=== PATIENT | male | born 1995 | race Hispanic/Latino ===

== ENCOUNTER 2020-07-13 02:53 | Emergency (ER) | payer BC, SELFPAY ==
--- NOTE | ~2020-07-13 | XR_ITS ---
EXAMINATION: XR chest 1V EXAM DATE: 07/13/2020 03:22 INDICATION: Transient alteration of awareness. TECHNIQUE: Portable AP frontal chest x-ray was obtained. There is no prior study for comparison. FINDINGS: The lungs are clear. There are no pleural effusions. The cardiomediastinal silhouette is within normal limits. There is no pneumothorax suspected. The bones and soft tissues are unremarkab le. IMPRESSION: Normal chest x-ray exam. Reviewed, dictated and finalized at location A. IMPRESSION: Normal chest x-ray exam.
--- NOTE | ~2020-07-13 | CT_ITS ---
EXAMINATION: CT brain wo con EXAM DATE: 07/13/2020 03:20 INDICATION: Syncope. Altered mental status. TECHNIQUE: Spiral CT of the head was performed without contrast. Axial, coronal and sagittal images were reviewed. The dose-length product (DLP) for this examination was 605.33 mGy-cm. The exposure w as tailored according to patient size, and iterative reconstruction (ASIR) was used as additional dos e reduction technique. There is no prior study for comparison. FINDINGS: There is no acute intraparenchymal hemorrhage. No evidence of intraparenchymal brain mass lesion. No evidence of acute infarction. There is no mass effect or midline shift. The ventricles are normal in size. There are no extra-axial collections. There are no acute calvarial fractures. T he orbits are unremarkable. Soft tissue is unremarkable. The visualized sinuses and mastoid air mita ls are well aerated. IMPRESSION: 1. Normal head CT examination. Reviewed, dictated and finalized at location A.
[2020-07-13 02:54] VITALS: BP 142/84; PULSE 85; RESP 19; TEMP 37.2; O2SAT 100
--- NOTE | 2020-07-13 02:57 | ECG_ITS ---
Measurements Intervals [place] Rate: 84 P: 73 [place]: 151 QRS: 75 QRSD: 99 T: 50 QT: 360 QTc: 426 Interpretive Statements SINUS RHYTHM WITH SINUS ARRHYTHMIA NORMAL ECG Electronically Signed On 07-16-2020 16:09:09 CDT by Aayush Mclaughlin D.O.
--- NOTE | 2020-07-13 03:16 | PC.NURSE ---
0305-Patient started verbalizing-speech clear. Answers no when asked if he took anything tonight. Responded [facility]? when asked if he knew where he was. Patient is very jumpy to any physical touch
[2020-07-13 03:24] LABS: Basophils Percent Auto 0.3 % (0.2-1.2); Eosinophils Absolute Auto 0.1 K/mm3 (0-0.3); Eosinophils Percent Auto 0.8 % (0-4.4); Hematocrit 41.5 % (42.0-52.0); Hemoglobin 14.9 g/dL (14.0-18.0); Immature Granulocyte Absolute 0.02 K/mm3 (0.00-0.031); Immature Granulocyte Percent A 0.2 % (0-0.5); Lymphocytes Absolute Auto 2.77 K/mm3 (0.9-3.2); Lymphocytes Percent Auto 31.6 % (18.3-44.2); Mean Corpuscular HGB Conc 35.9 g/dl (32-36); Mean Corpuscular Hemoglobin 32.2 pg (26-34); Mean Corpuscular Volume 89.6 fl (80-100); Mean Platelet Volume 9.1 fl (7.4-10.4); Monocytes Absolute Auto 0.7 K/mm3 (0.1-0.6); Monocytes Percent Auto 7.6 % (2.6-8.5); Neutrophils Absolute Auto 5.2 K/mm3 (1.3-6.7); Neutrophils Percent Auto 59.5 % (45.5-73.1); Platelet Count Result 273 k/mm3 (150-375); Red Blood Count 4.63 M/mm3 (4.6-6.20); Red Cell Distribution Width 10.8 % (11.5-14.5); White Blood Count 8.8 K/mm3 (4.5-10.0)
[2020-07-13 03:30] VITALS: BP 147/77; PULSE 79; RESP 19; O2SAT 97
[2020-07-13 03:41] LABS: Anion Gap 14 mmol/L (8-16); Blood Urea Nitrogen 17 mg/dL (9-20); Calcium 9.8 mg/dL (8.4-10.2); Carbon Dioxide 24 mmol/L (22-30); Chloride 104 mmol/L (98-107); Estimated CRCL calculation 83 ml/min; Estimated Glomerular Filt Rate > 60; Ethanol < 10 mg/dL (<10); Glucose 99 mg/dL (75-110); Potassium 4.2 mmol/L (3.4-5.0); Sodium 142 mmol/L (137-145)
--- NOTE | 2020-07-13 03:45 | PC.NURSE ---
Patient has bedside visitor--patient talking to visitor
[2020-07-13 04:00] VITALS: BP 157/85; PULSE 82; RESP 16; O2SAT 99
--- NOTE | 2020-07-13 04:20 | PC.NURSE ---
Patient very awake alert-he was asked to give urine--asked for something to bite on as he was swabbed yesterday and it hurts to pee . Side rail down/patient has urinal. Visitor at bedside
[2020-07-13 04:30] LABS: Add Urine Microscopic? YES; Appearance Urine Clear (Clear); Bilirubin Urine 1+ (Negative); Blood Urine Negative (Negative); Color Urine Yellow (Yellow); Glucose Urine UA Negative (Negative); Ketones Urine 1+ mg/dL (Negative); Leukocyte Esterase Ur Negative LEU/UL (Negative); Mucus Urine Moderate /lpf; Nitrate Urine Negative (Negative); Protein Urine 2+ mg/dL (Negative); RBC Urine 0-2 /hpf (0-2); Urobilinogen Urine Negative mg/dL (<2.0); WBC Urine 0-3 /hpf
[2020-07-13 04:46] LABS: Amphetamine Screen Urine Negative (Negative); Barbiturate Screen Urine Negative (Negative); Benzodiazepines Screen Urine Negative (Negative); Cannabinoid Screen Urine Positive (Negative); Cocaine Screen Urine Negative (Negative); Methadone Screen Urine Negative (Negative); Opiate Screen Urine Negative (Negative); Phencyclidine Screen Urine Negative (Negative)
[2020-07-13 04:55] LABS: Specific Grav Ur 1.035 (1.001-1.035)
[2020-07-13 05:00] VITALS: BP 135/81; PULSE 87; RESP 16; O2SAT 100
--- NOTE | 2020-07-13 05:03 | ED.AMS ---
HPI - Altered Mental Status General Chief Complaint: Altered Mental Status Stated Complaint: ams History of Present Illness HPI narrative: Patient is a 24-year-old male who presents to the ER with altered mental status. 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 He was awake. He would not follow commands. He had no response to Narcan. Upon arrival patient can intermittently follow commands. He will not provide a history. No evidence of trauma. Review of Systems Review of Systems: ROS unobtainable: Yes unobtainable due to mental status PMFSH Past Medical History Medical History (Updated 07/13/20 @ 05:07 by Samir Guillen MD) Healthy adult male Surgical History Surgical History (Updated 07/13/20 @ 05:05 by Samir Guillen MD) No history of previous surgery Social History Social History (Updated 07/13/20 @ 05:05 by Samir Guillen MD) Substance use type: marijuana Exam Narrative: Exam Narrative: GENERAL: Well-appearing, well-nourished, and in no acute distress. HEAD: Normocephalic, atraumatic. EYES: PERRLA and EOMI. ENT: Mucous membranes moist. CHEST: Clear to auscultation. No respiratory distress. HEART: Regular rate and rhythm. No murmur heard. Normal peripheral pulses. ABDOMEN: Soft, nontender, nondistended, normal active bowel sounds. EXTREMITIES: Normal range of motion. No edema. SKIN: Warm, dry, no rash. NEURO: Awake and alert, moves all extremities without issue. Senses pain. Course Course Emergency Course: Patient awake alert and oriented x3. States he is ready to go home. Thinks he had a mental breakdown due to stress from balancing home and work. I suspect this is not true that he was actually intoxicated will not admit it. When I confronted him about drug use he refuses to talk and is evasive. Vital Signs Vital signs: Vital Signs Temperature 98.9 F 07/13/20 02:54 Pulse Rate 85 07/13/20 02:54 Respiratory Rate 19 07/13/20 02:54 Blood Pressure 142/84 H 07/13/20 02:54 Pulse Oximetry 100 07/13/20 02:54 Temperature 98.9 F 07/13/20 02:54 Pulse Rate 85 07/13/20 02:54 Respiratory Rate 19 07/13/20 02:54 Blood Pressure 142/84 H 07/13/20 02:54 Pulse Oximetry 100 07/13/20 02:54 MDM - Altered Mental Status Lab Data Result diagrams: 07/13/20 03:10 07/13/20 03:10 Labs: Lab Results 07/13/20 07/13/20 07/13/20 Range/Units 03:10 03:10 03:10 WBC 8.8 (4.5-10.0) K/mm3 RBC 4.63 (4.6-6.20) M/mm3 Hgb 14.9 (14.0-18.0) g/dL Hct 41.5 L (42.0-52.0) % MCV 89.6 (80-100) fl MCH 32.2 (26-34) pg MCHC 35.9 (32-36) g/dl RDW 10.8 L (11.5-14.5) % Plt Count 273 (150-375) k/mm3 MPV 9.1 (7.4-10.4) fl Immature Gran % (Auto) 0.2 (0-0.5) % Neut % (Auto) 59.5 (45.5-73.1) % Lymph % (Auto) 31.6 (18.3-44.2) % [place] % (Auto) 7.6 (2.6-8.5) % Eos % (Auto) 0.8 (0-4.4) % Baso % (Auto) 0.3 (0.2-1.2) % Lymph # (Auto) 2.77 (0.9-3.2) K/mm3 [place] # (Auto) 0.7 H (0.1-0.6) K/mm3 Eos # (Auto) 0.1 (0-0.3) K/mm3 Baso # (Auto) 0.0 (0.0-0.1) K/mm3 Abs Immat Gran (auto) 0.02 (0.00-0.031) K/mm3 Absolute Neuts (auto) 5.2 (1.3-6.7) K/mm3 Absolute Nucleated RBC 0.0 (0.0-0.012) K/mm3 Nucleated RBC % 0.0 (0.0-0.2) % Sodium 142 (137-145) mmol/L Potassium 4.2 (3.4-5.0) mmol/L Chloride 104 (98-107) mmol/L Carbon Dioxide 24 (22-30) mmol/L Anion Gap 14 (8-16) mmol/L BUN 17 (9-20) mg/dL Creatinine 1.20 (0.7-1.3) mg/dL Estim Creat Clear Calc 83 ml/min Estimated GFR > 60 (59 - ) Glucose 99 (75-110) mg/dL Calcium 9.8 (8.4-10.2) mg/dL Urine Color (Yellow) Urine Appearance (Clear) Urine pH (5.0-9.0) Ur Specific [place] (1.001-1.035) Urine Protein (Negative) mg/dL Urine Glucose (UA) (Negative) mg/dL Urine Ketones (Negat
== END 2020-07-13 05:15 | disposition home or self-care (01) ==
PROVIDERS: Emergency Provider Emergency Medicine
DX: R41.0 Disorientation, unspecified (principal)
CPT/HCPCS: 36415; 70450; 71045; 80048; 80307; 81001; 85025; 93005; 99284

== ENCOUNTER → 2021-05-24 10:33 | Outpatient (CLI) | payer SELFPAY ==
--- NOTE | ~2021-05-24 | XR_ITS ---
EXAMINATION:XR cervical spine min 6V DATE: 05/24/2021 11:07 INDICATION: Neck pain TECHNIQUE: AP, lateral in neutral, flexion, extension, bilateral oblique, and odontoid views of the c ervical spine are provided. COMPARISON: None FINDINGS: Alignment is normal. There is no laxity with flexion or extension. There is straightening o f the cervical spine which can be positional or due to muscular spasm. The odontoid is intact. No fra cture is identified. Vertebral body heights and disk spaces are normal. Prevertebral soft tissues are normal. IMPRESSION: 1. Normal cervical spine. Reviewed, dictated and finalized at location B. IMPRESSION: 1. Normal cervical spine.
== END ==
DX: M54.12 Radiculopathy, cervical region (principal); M99.02 Segmental and somatic dysfunction of thoracic region; M79.12 Myalgia of auxiliary muscles, head and neck
CPT/HCPCS: 72052